=== PATIENT | female | born 1960 | race Caucasian/White ===

== ENCOUNTER 2024-06-02 10:04 | Day surgery (SDC) | payer BC ==
[2024-06-02] MEDS ORDERED: TOBRAMYCIN OP ONE (10:05)
[2024-06-02] MEDS ORDERED: [UNRECOGNIZED DRUG - OTHER] OP ONE (10:05)
[2024-06-02] MEDS ORDERED: Lactated Ringers 1,000 ML IV ONE (10:27)
[2024-06-02] MEDS: Lactated Ringers 1,000 ML IV SCH (10:34)
[2024-06-02] MEDS: TRIAMCINOLONE 15 MG/ML INJ INTRAOP ONE (10:35)
[2024-06-02] MEDS: BETADINE 5% OPHTHALMIC 30 ML OP ONE (10:35)
[2024-06-02] MEDS: MOXIFLOXACIN 4 MG/0.8 ML VIAL IO ONE (10:35)
[2024-06-02] MEDS: TETRACAINE 0.5% STERI-UNIT SOL OP ONE ×2 (10:35)
[2024-06-02] MEDS: Ak-Dilate OPHTHALMIC*** 1.065 ML, Cyclogyl 1% OPHTH SOL 1.065 ML, GATIFLOXACIN 0.5% OPH... OP ONE (10:36)
[2024-06-02] MEDS ORDERED: ACETAZOLAMIDE 250 MG TABLET PO ONE (12:00)
[2024-06-02] MEDS ORDERED: Zofran 4 MG/2 ML VIAL IV PRN (12:00)
[2024-06-02] MEDS ORDERED: DIPRIVAN 200 MG/20 ML IV ONE (13:20)
[2024-06-02 13:49] VITALS: RESP 16
[2024-06-02 13:52] VITALS: BP 135/79; PULSE 69; O2SAT 97
[2024-06-02 14:00] VITALS: TEMP 96.9
== END 2024-06-02 14:00 | disposition home or self-care (01) ==
LOC: SDC 10:04
PROVIDERS: ATTEND Ophthalmology
DX: H00.15 Chalazion left lower eyelid (principal)
CPT/HCPCS: J2704; A9270-GY